=== PATIENT | male | born 1930 | race Asian ===

== ENCOUNTER → 2017-07-09 | Outpatient (CLI) | payer MEDICARE, OTHER ==
[~2017-07-09] MED LIST: DUTA.5 PO; OMEP20CA10 PO; PRAV10TA; SINCR25100 PO; SITA50 PO; VERA-6 PO; tamsulosin
== END | disposition home or self-care (01) ==
LOC: RADPV 14:07
PROVIDERS: ATTEND Internal Medicine
DX: H02.109 Unspecified ectropion of unspecified eye, unspecified eyelid (principal)
CPT/HCPCS: 93005

== ENCOUNTER 2018-01-01 10:16 | Emergency (ER) | payer MEDICARE, OTHER ==
[~2018-01-01] VITALS: Ht 162.6 cm; Wt 64.0 kg
[2018-01-01] MEDS: BUPIVACAINE HCL/PF 0.25% 10 ML VIAL INJ ONE (11:02)
[2018-01-01] MEDS: ACETAMINOPHEN 500 MG TABLET PO ONE (11:02)
[2018-01-01] MEDS: PERTUSS(ACELL),DIPH,TET VAC/PF 0.5 ML VIAL IM ONE (11:02)
[2018-01-01 13:30] VITALS: BP 146/92
== END 2018-01-01 14:19 | disposition home or self-care (01) ==
LOC: EMS 10:18
DX: S09.90XA Unspecified injury of head, initial encounter (principal); S61.213A Laceration without foreign body of left middle finger without damage to nail, initial encounter; S61.211A Laceration without foreign body of left index finger without damage to nail, initial encounter; S61.412A Laceration without foreign body of left hand, initial encounter; I10 Essential (primary) hypertension; E78.00 Pure hypercholesterolemia, unspecified; E11.9 Type 2 diabetes mellitus without complications; G20 Parkinson's disease; Y93.89 Activity, other specified; W19.XXXA Unspecified fall, initial encounter; Y92.89 Other specified places as the place of occurrence of the external cause; Y99.8 Other external cause status
CPT/HCPCS: 12001; 70450; 73130; 82962; 90471; 90715; 99284; J3490